=== PATIENT | female | born 1990 | race Caucasian/White ===

== ENCOUNTER → 2017-02-24 | Outpatient (CLI) | payer OTHER ==
[~2017-02-24] MED LIST: ADVIL200 MG PO; FLEXERIL10 MG PO; NAPROSYN500 MG PO; TYLENOL325 MG PO; VALERIAN ROOT500 MG PO
--- NOTE | ~2017-02-24 | NDGEN ---
PATIENT'S NAME: RONALD DACOSTA [facility] AGE: 26 Y [address] ROOM: [place] [address] LOCATION: [facility] ADMIT DATE: 02/24/2017 Neurodiagnostics DISCHARGE DATE: FAMILY PHYSICIAN: PHYSICIAN, NO ATTENDING PHYSICIAN: LUCIA CHOWDHURY DATE OF PROCEDURE: 02/24/2017 PROCEDURE PERFORMED: EMG nerve conduction study of the bilateral lower extremities. The patient had this study done on 02/24/2017. INDICATIONS FOR PROCEDURE: This is a 26-year-old female patient, who says that she has fibromyalgia. She has been worked up in the past for complaints of distal lower extremity symptoms that involve the bottom of her feet in particular. She states that she sometimes can experience a sudden warmth sensation of her feet that become an annoying, uncomfortable feeling. She denies any change in color of her feet. She denies that she has lack of sensation or tingling or numbness to her feet. There are no symptoms that appeared to have progressed any time to the ankles or up to the lower legs. PHYSICAL EXAMINATION: She has normal bulk and tone of the lower extremity muscles. She has good power and hip flexion symmetrically, lower leg flexion, and leg extension. Dorsiflexion of both feet is full power, but tends to not give me the best effort. Gastrocnemius power is also 5/5, but somewhat less effort is noted. Eversion of the feet is 5/5, effort dependent. Extension of the toes and flexion of the toes is normal. There is no decreased sensation to light touch and to pinprick of the feet or the legs. There is normal fine muscle bulk at the bilateral EDB muscles with no obvious atrophy. Reflexes are absent at the patellas repeatedly, but ankle jerks are intact bilaterally. In the upper extremities, biceps and triceps reflexes are diminished or absent at +1. The patient's gait and position sense is intact. DESCRIPTION OF PROCEDURE: This nerve conduction and EMG study was done to rule out any possibility of a distal symmetric neuropathy or evidence for a radiculopathy. Peroneal and tibial motor nerves were stimulated and normal motor onset latencies were seen along with normal amplitudes recorded. Furthermore, normal nerve conduction velocities in the range of 53 to 63 m/sec PATIENT'S NAME: RONALD DACOSTA [facility] AGE: 26 Y [address] ROOM: [place], [place] [address] LOCATION: [facility] ADMIT DATE: 02/24/2017 Neurodiagnostics DISCHARGE DATE: FAMILY PHYSICIAN: PHYSICIAN, NO ATTENDING PHYSICIAN: LUCIA CHOWDHURY were recorded in the peroneal muscles. Tibial nerve conduction studies were slightly slower but within normal limits with normal motor onset latencies and amplitudes recorded. On sensory nerve conduction studies, there was normal sensory nerve action potential, amplitudes that were well within normal limits. Nerve conduction velocities were in the ranges of 42 to 46 m/sec, considered to be normal. F-wave studies of the peroneal and tibial motor nerves were also within normal limits. Next, a needle EMG was performed in the bilateral lower extremities. With the muscles at rest, the needle was placed into the quadriceps, tibialis anterior, and gastrocnemius muscles bilaterally. There was no evidence of any abnormal spontaneous electrical activity such as fibrillation potentials or positive sharp waves. There was no evidence of odd insertional activity or evidence for fasciculations. On recruitment of these muscles, there was noted to be full recruitment pattern with normal sizes and phases of these motor unit action potentials. IMPRESSION: The nerve conduction studies and EMG studies of the bilateral lower extremities were within normal limits. From the nerve conduction studies, there was no evidence to support a distal symmetric polyneuropathy involving the motor and sensory nerves. Due to the fact that nerve conduction studies cannot stimulate small fibers due to the lack of myelination, a small fiber neuropathy can never be ruled out. However, the symptomatology suggest positive phenomenon of "heat" as opposed to lack of sensation and numbness or tingling. It would be more typical in a small fiber neuropathy. The needle EMG study was also well within normal limits with normal recruitment of motor unit action potentials, and no evidence of any abnormal spontaneous electrical activity seen with the muscles at rest. Therefore, there was no evidence to support a lumbar radiculopathy as well. MD YU BRAGG/danny /[id number] CORRECTED COPY -- Work Type / 8-17-2017 / kld dtt: 03/18/17 1623 , BAKARI OROURKE dtd: 02/24/17 2239
== END | disposition disaster alternative care site (69) ==
LOC: GNEU 16:01
DX: G58.9 Mononeuropathy, unspecified (principal); R20.9 Unspecified disturbances of skin sensation

== ENCOUNTER → 2017-03-10 | Outpatient (CLI) | payer OTHER | END | disposition disaster alternative care site (69) | LOC: GRAD 12:29 | DX: M54.9 Dorsalgia, unspecified (principal); M43.06 Spondylolysis, lumbar region ==

== ENCOUNTER → 2017-03-24 | Day surgery (SDC) | payer OTHER ==
[~2017-03-24] VITALS: Ht 175.3 cm; Wt 58.9 kg
--- NOTE | ~2017-03-24 | OR ---
PATIENT'S NAME: RONALD ADCOSTA [facility] AGE: 27 Y [address] ROOM: [place] [address] [address]: [facility] [place] ADMIT DATE: 03/24/2017 OR/Procedure Report DISCHARGE DATE: FAMILY PHYSICIAN: Edda Nuno MD ATTENDING PHYSICIAN: Dorina Santana SURGEON: Malik Cardona MD ALTERATION MANAGER: DATE OF PROCEDURE: 03/24/2017 PROCEDURE: Left L4-L5 transforaminal epidural steroid injection. INDICATION: The patient has degenerative disk disease with radiculopathy, foraminal stenosis from the bulging disk, and low back pain. Risks, benefits, and alternatives were explained to the patient. She wished to proceed. DESCRIPTION OF PROCEDURE: She was taken to the procedure room, placed in prone position. The back was prepped with Betadine x3 and sterile drape applied over top. The skin was numbed with 3 mL of 1% lidocaine. Fluoroscopic guidance of a 22-gauge 3.5 inch spinal needle with gentle manual bend. Once the needle was felt to be in good position, about a mL of contrast was injected in the AP and lateral views showing good epidural spread. No intrathecal uptake. No intravascular uptake. Next, a mixture of 2 mL of 2% lidocaine and 10 mg of preservative-free Decadron were injected without complication. The stylette placed, needle withdrawn. COMPLICATIONS: None. BLOOD LOSS: None. MALIK CARDONA MD JJP/modl /[id number] d: t: 03/24/171944, OPERATIVE SUMMARY
== END ==
LOC: GPOC 03-21 13:00 → GSDC 12:00
PROC: 3E0R3BZ Introduction of Anesthetic Agent into Spinal Canal, Percutaneous Approach (ICD-10-PCS; principal; 2017-03-24)
PROC: 3E0R33Z Introduction of Anti-inflammatory into Spinal Canal, Percutaneous Approach (ICD-10-PCS; 2017-03-24)
DX: G89.29 Other chronic pain (principal); M51.16 Intervertebral disc disorders with radiculopathy, lumbar region
CPT/HCPCS: J1100